=== PATIENT | male | born 1980 ===

== ENCOUNTER 2017-04-21 10:06 | Emergency (ER) | payer OTHER ==
[2017-04-21 10:06] VITALS: BMI 30.1
[2017-04-21 10:15] VITALS: BP 159/92; PULSE 89; RESP 17; TEMP 98; O2SAT 98
--- NOTE | 2017-04-21 11:08 | ED PDOC ---
HPI: Wound Care - HPI Time Seen by Provider: 04/21/17 10:32 Chief Complaint (Nursing): Wound Check Chief Complaint (Provider): suture removal History Per: Patient Additional Complaint(s): 37yo M in ED for eval of suture removal plced last week. no drainage no swelling no pain. Past Medical History Reviewed: Historical Data, Nursing Documentation, Vital Signs Vital Signs: Last Vital Signs Temp 98 F 04/21/17 10:13 Pulse 89 04/21/17 10:13 Resp 17 04/21/17 10:13 BP 159/92 H 04/21/17 10:13 Pulse Ox 98 04/21/17 10:13 - Medical History PMH: No Chronic Diseases - Family History Family History: States: Unknown Family Hx - Home Medications Home Medications: Ambulatory Orders Medication Instructions Recorded No Known Home Med 04/21/17 - Allergies Allergies/Adverse Reactions: Allergies Allergy/AdvReac Type Severity Reaction Status Date / Time No Known Allergies Allergy Verified 04/14/17 10:39 Review of Systems ROS Statement: Except As Marked, All Systems Reviewed And Found Negative Eyes: Positive for: Other Physical Exam - Reviewed Nursing Documentation Reviewed: Yes Vital Signs Reviewed: Yes - Physical Exam Appears: Positive for: Well, Non-toxic, No Acute Distress Head Exam: Positive for: ATRAUMATIC, NORMAL INSPECTION, NORMOCEPHALIC Skin: Positive for: Normal Color, Warm, Rash (sutures in place aboveleft eyeborw -good wound healing noted. ) Eye Exam: Positive for: EOMI, Normal appearance, PERRL Neurologic/Psych: Positive for: Alert, Oriented - ECG O2 Sat by Pulse Oximetry: 98 Medical Decision Making Medical Decision Making: sutures removed. no complications. no further ED f.u needed Disposition - Clinical Impression Clinical Impression: Visit for suture removal - Patient ED Disposition Is Patient to be Admitted: No Counseled Patient/Family Regarding: Need For Followup - Disposition Disposition: Routine/Home Disposition Time: 11:08 Condition: STABLE Instructions: Stitches Removal (ED)
== END 2017-04-21 11:16 | disposition home or self-care (01) ==
LOC: H.ER 10:06
DX: Z48.02 Encounter for removal of sutures (principal)

== ENCOUNTER 2017-04-22 21:41 | Emergency (ER) | payer OTHER ==
[2017-04-22 21:41] VITALS: BMI 30.1
[2017-04-22 21:53] VITALS: BP 149/86; PULSE 95; RESP 16; TEMP 98.6; O2SAT 99
[2017-04-22 22:39] LABS: BASO # 0.1 K/uL (0.0-0.2); BASO % 0.8 % (0.0-2.0); EOS # 0.2 K/uL (0.0-0.7); EOS % 2.4 % (0.0-4.0); HEMATOCRIT 42.6 % (35.0-51.0); LYMPH # 2.6 K/uL (1.0-4.3); LYMPH % 26.8 % (20.0-40.0); MEAN CELL VOLUME 82.7 fl (80.0-94.0); MEAN CORPUSCULAR HEMOGLOBIN 27.4 pg (27.0-31.0); MEAN CORPUSCULAR HGB CONC 33.2 g/dL (33.0-37.0); MEAN PLATELET VOLUME 8.7 fl (7.2-11.7); MONO # 0.7 K/uL (0.0-0.8); NEUT # 6.1 K/uL (1.8-7.0); NRBC % 0.2 % (0.0-0.0); RED CELL DISTRIBUTION WIDTH 13.1 % (11.5-14.5); WHITE BLOOD COUNT 9.7 K/uL (4.8-10.8)
[2017-04-22 22:44] LABS: PARTIAL THROMBOPLASTIN TIME 31.6 Seconds (25.6-37.1)
[2017-04-22 22:49] LABS: ALB/GLOB RATIO 1.3 (1.0-2.1); ALKALINE PHOSPHATASE 85 U/L (38-126); ALT/SGPT 78 U/L (21-72); AST/SGOT 31 U/L (17-59); BILIRUBIN,TOTAL 0.7 mg/dl (0.2-1.3); BLOOD UREA NITROGEN 14 mg/dl (9-20); CALCIUM 9.1 mg/dL (8.4-10.2); CARBON DIOXIDE 24 mmol/L (22-30); CHLORIDE 107 mmol/L (98-107); GFR AFRICAN-AMERICAN > 60; GLUCOSE,RANDOM 113 mg/dL (75-110); POTASSIUM 4.1 MMOL/L (3.6-5.0); SODIUM 141 mmol/l (132-148); TOTAL PROTEIN 8.1 G/DL (6.3-8.2)
--- NOTE | 2017-04-23 00:20 | ED PDOC ---
HPI: Chest Pain Time Seen by Provider: 04/22/17 21:57 Chief Complaint (Nursing): Chest Pain Chief Complaint (Provider): Chest Pain History Per: Patient History/Exam Limitations: no limitations Onset/Duration Of Symptoms: Days (x1) Current Symptoms Are (Timing): Still Present Quality: Pressure Associated Symptoms: denies: Nausea, Diaphoresis Nitro Therapy Administered: 1, Per ED Additional Complaint(s): 37 year old male presents to ED with complaints of chest pain x1 day and has a past medical history of hypertriglyceridemia, hypercholesterolemia, HTN, pre-DM , and ADD. Patient notes that chest pain started this morning and was localized to the left side. (-) nausea, vomiting, diaphoresis, cough, fever, or SOB. Patient confirms pain is unchanged by movement or activity, and describes the pain as a pressure sensation. PCP: Ashley Past Medical History Reviewed: Historical Data, Nursing Documentation, Vital Signs Vital Signs: Last Vital Signs Temp 98.6 F 04/22/17 21:49 Pulse 95 H 04/22/17 21:49 Resp 16 04/22/17 21:49 BP 149/86 04/22/17 21:49 Pulse Ox 99 04/23/17 00:28 - Medical History PMH: Diabetes (pre diabetes), HTN, Hypercholesterolemia Other PMH: hypertriglyceridemia, ADD - Surgical History Other surgeries: right bicept tendon repair - Family History Family History: States: CAD (Heart disease in father's family history), Other - Social History Current smoker - smoking cessation education provided: No Ex-Smoker (has not smoked in the last 12 months): No Alcohol: None Drugs: Denies - Home Medications Home Medications: Ambulatory Orders Medication Instructions Recorded No Known Home Med 04/21/17 - Allergies Allergies/Adverse Reactions: Allergies Allergy/AdvReac Type Severity Reaction Status Date / Time No Known Allergies Allergy Verified 04/14/17 10:39 AUDREY Risk Score for UA/NSTEMI - AUDREY Risk Score Age > 64: NO 3 or more CAD Risk Factors: YES AUDREY Score: 1 Risk %: 5% Curb-65 Severity Score - CURB-65 Severity Score Confusion: No Respiratory Rate greater than/equal to 30: No Systolic BP <90 or Diastolic BP less than/equal 60mmHg: No Age >64: No Curb-65 Score: 0 Percentage 30-day mortality: 0.6% Wells Criteria for PE - Wells Criteria for Pulmonary Embolism Clinical Signs and Symptoms of DVT: No P.E is #1 Diagnosis, or Equally Likely: No Heart Rate >100: No Immobilization at least 3 days;Surgery previous 4 weeks: No Previous, objectively diagnosed PE or DVT: No Hemoptysis: No Malignancy w/treatment within 6 months, or palliative: No Total Score: 0 Review of Systems ROS Statement: Except As Marked, All Systems Reviewed And Found Negative Constitutional: Negative for: Fever, Sweats Cardiovascular: Positive for: Chest Pain Respiratory: Negative for: Cough, Shortness of Breath Gastrointestinal: Negative for: Nausea, Vomiting Physical Exam - Reviewed Nursing Documentation Reviewed: Yes Vital Signs Reviewed: Yes - Physical Exam Appears: Positive for: Non-toxic, No Acute Distress Head Exam: Positive for: ATRAUMATIC, NORMOCEPHALIC Skin: Positive for: Normal Color, Warm, Dry Eye Exam: Positive for: EOMI, Normal appearance, PERRL ENT: Positive for: Normal ENT Inspection Neck: Positive for: Normal, Painless ROM Cardiovascular/Chest: Positive for: Regular Rate, Rhythm. Negative for: Murmur Respiratory: Positive for: Normal Breath Sounds. Negative for: Respiratory Distress Gastrointestinal/Abdominal: Positive for: Normal Exam, Soft. Negative for: Tenderness Back: Positive for: Normal Inspection. Negative for: L CVA Tenderness, R CVA Tenderness Extremity: Positive for: Normal ROM. Negative for: Deformity Neurologic/Psych: Positive for: Alert, Oriented. Negative for: Motor/Sensory Deficits - Laboratory Results Result Diagrams: 04/22/17 22:24 04/22/17 22:24 - ECG O2 Sat by Pulse Oximetry: 99 (RA) Pulse Ox Interpretation: Normal Medical Decision Making Medical Decision Makin Initial impression: chest pain in setting of known dyslipidemia and HTN Initial plan: * EKG * Labs * UDrug screen * Trop I * PTT/PT * CXR * ASA 324 mg PO * Re-eval 2300 CXR: NAD Labs reviewed: no clinically significant abnormalities. Due to multiple risk factors, patient is encouraged to be hospitalized under OBS status. 2325 Patient chooses to sign out AMA. This patient is choosing to leave against medical advice. The provider has personally explained to the patient that choosing to do so may result in permanent bodily harm or . The provider discussed at great length that without further evaluation and monitoring there may be unforeseen circumstances and/or deterioration causing permanent bodily harm or as a result of their choice. The patient verbalized these risks back to the physician in layman s terms. The patient is alert, oriented, and shows the mental capacity to make clear decisions regarding the patient's health care at this time. The patient continues to wish to leave against medical advice. In light of the patients decision to leave AMA, follow-up has been arranged and the patient is aware of the importance of following up as instructed. The patient has been advised that they should return to the ED immediately if they change their mind at any time, or if their condition begins to change or worsen in any way. Scribe Attestation: Documented by Alberta San acting as a scribe for Rik Wilhelm MD. Scribe Attestation: All medical record entries made by the Scribe were at my direction and personally dictated by me. I have reviewed the chart and agree that the record accurately reflects my personal performance of the history, physical exam, medical decision making, and the department course for this patient. I have also personally directed, reviewed, and agree with the discharge instructions and disposition. Disposition - Clinical Impression Clinical Impression: Chest pain - Patient ED Disposition Is Patient to be Admitted: No Counseled Patient/Family Regarding: Studies Performed, Diagnosis - Disposition Disposition: Against Medical Advice Disposition Time: 23:25 Condition: FAIR Forms: [facility] (Macedonian) - POA Present On Arrival: None
--- NOTE | 2017-04-23 11:14 | RAD ---
HISTORY: Chest pain COMPARISON: No prior. FINDINGS: LUNGS: The lungs are well inflated and clear. PLEURA: No significant pleural effusion identified, no pneumothorax apparent. CARDIOVASCULAR: Normal. OSSEOUS STRUCTURES: No significant abnormalities. VISUALIZED UPPER ABDOMEN: Normal. OTHER FINDINGS: None. IMPRESSION: No active pulmonary disease.
--- NOTE | 2017-04-24 12:04 | CARD ---
APPROVED REPORT EKG Measurement Heart [id number] <Conclusion> Normal sinus rhythm ST & T wave abnormality, consider lateral ischemia Abnormal ECG
== END 2017-04-23 00:10 | disposition left against medical advice (07) ==
LOC: H.ER 21:41
DX: R07.89 Other chest pain (principal); E78.00 Pure hypercholesterolemia, unspecified; E78.1 Pure hyperglyceridemia; I10 Essential (primary) hypertension; R73.03 Prediabetes; Z79.82 Long term (current) use of aspirin; Z82.49 Family history of ischemic heart disease and other diseases of the circulatory system; Z87.891 Personal history of nicotine dependence

== ENCOUNTER 2017-04-23 05:41 | Observation (INO) | payer OTHER ==
[2017-04-23 05:41] VITALS: BMI 30.1
--- NOTE | 2017-04-23 05:54 | ED PDOC ---
HPI: Chest Pain Time Seen by Provider: 04/23/17 05:47 Chief Complaint (Nursing): Chest Pain Chief Complaint (Provider): Chest Pain History Per: Patient History/Exam Limitations: no limitations Onset/Duration Of Symptoms: Days (x1) Current Symptoms Are (Timing): Still Present Quality: Pressure Associated Symptoms: denies: Nausea Additional Complaint(s): 37 year old male presents to ED with complaints of chest pain x1 day and has a past medical history of hypertriglyceridemia, hypercholesterolemia, HTN, pre-DM , and ADD. Patient notes that chest pain started this morning and was localized to the left side. (-) nausea, vomiting, diaphoresis, cough, fever, or SOB. Patient confirms pain is unchanged by movement or activity, and describes the pain as a pressure sensation. Patient was seen in ED earlier today and was recommended by provider to remain in the hospital for chest pain observation but declined. Patient now returns for observation. PCP: Ashley - Risk Factors PE Risk Factors: Neg: Active Cancer TAD Risk Factors: Pos: Hypertension Past Medical History Reviewed: Historical Data, Nursing Documentation, Vital Signs Vital Signs: Last Vital Signs Temp 97.5 F L 04/23/17 05:51 Pulse 88 04/23/17 06:28 Resp 18 04/23/17 06:28 BP 136/82 04/23/17 06:28 Pulse Ox 100 04/23/17 05:51 - Medical History PMH: Diabetes (pre diabetes), HTN, Hypercholesterolemia - Family History Family History: States: Unknown Family Hx, CAD (Heart disease in father's family history) - Home Medications Home Medications: Ambulatory Orders Medication Instructions Recorded Atorvastatin [Lipitor] 20 mg PO HS 04/23/17 Methylphenidate HCl [Concerta] 18 mg PO DAILY 04/23/17 - Allergies Allergies/Adverse Reactions: Allergies Allergy/AdvReac Type Severity Reaction Status Date / Time No Known Allergies Allergy Verified 04/23/17 06:23 AUDREY Risk Score for UA/NSTEMI - AUDREY Risk Score Age > 64: NO 3 or more CAD Risk Factors: YES AUDREY Score: 1 Risk %: 5% Curb-65 Severity Score - CURB-65 Severity Score Confusion: No Respiratory Rate greater than/equal to 30: No Systolic BP <90 or Diastolic BP less than/equal 60mmHg: No Age >64: No Curb-65 Score: 0 Percentage 30-day mortality: 0.6% Review of Systems ROS Statement: Except As Marked, All Systems Reviewed And Found Negative Constitutional: Negative for: Fever, Sweats Cardiovascular: Positive for: Chest Pain Respiratory: Negative for: Cough, Shortness of Breath Gastrointestinal: Negative for: Nausea, Vomiting Physical Exam - Reviewed Nursing Documentation Reviewed: Yes Vital Signs Reviewed: Yes - Physical Exam Appears: Positive for: Well, Non-toxic, No Acute Distress Head Exam: Positive for: ATRAUMATIC, NORMOCEPHALIC Skin: Positive for: Normal Color, Warm, Dry Eye Exam: Positive for: EOMI, Normal appearance, PERRL ENT: Positive for: Normal ENT Inspection Neck: Positive for: Normal, Painless ROM, Supple Cardiovascular/Chest: Positive for: Regular Rate, Rhythm, Tachycardia Respiratory: Positive for: Normal Breath Sounds. Negative for: Respiratory Distress Gastrointestinal/Abdominal: Positive for: Normal Exam, Soft. Negative for: Tenderness Back: Positive for: Normal Inspection Extremity: Positive for: Normal ROM. Negative for: Deformity Neurologic/Psych: Positive for: Alert, Oriented. Negative for: Motor/Sensory Deficits Medical Decision Making Medical Decision Makin Initial impression: chest pain in setting of risk factors including HTN, hypercholesterolemia, hypertriglyceridemia, pre-DM Initial plan: * EKG * UDrug Screen * Trop I * OBS TELE order [id number] Cottrell, who accepts patient under his service. Scribe Attestation: Documented by Alberta San acting as a scribe for Rik Wilhelm MD. Scribe Attestation: All medical record entries made by the Scribe were at my direction and personally dictated by me. I have reviewed the chart and agree that the record accurately reflects my personal performance of the history, physical exam, medical decision making, and the department course for this patient. I have also personally directed, reviewed, and agree with the discharge instructions and disposition. Disposition - Clinical Impression Clinical Impression: Chest pain - Patient ED Disposition Is Patient to be Admitted: Yes Discussed With : Tenzin Cottrell Counseled Patient/Family Regarding: Studies Performed, Diagnosis - Disposition Disposition Time: 06:00 Condition: FAIR Forms: [facility] ([place]) - Pt Status Changed To: Hospital Disposition Of: Observation
[2017-04-23] MEDS ORDERED: Methylphenidate ER 18 MG TAB(Concerta) PO SCH (11:45)
--- NOTE | 2017-04-23 14:53 | CP.PCM.CON ---
History of Present Illness - History of Present Illness History of Present Illness: 37 yo male with atypical cp x 2 days. pain is moderate, constant, tightness over lateral lower chest area near lower ribs. It does no radiate and increases with twisting of torso. no associated sx. no hx of tobacco. no hx of htn or dyslipidemia. trop neg x 2. ekg nml Review of Systems - Constitutional Constitutional: As Per HPI. absent: Anorexia, Chills, Daytime Sleepiness, Excessive Sweating, Fatigue, Fever, Frequent Falls, Headache, Increased Appetite , Lethargy, Malaise, Night Sweats, Snoring, Sleep Apnea, Weight Gain, Weight Loss, Weakness, Other - EENT Eyes: As Per HPI. absent: Blind Spots, Blurred Vision, Change in Vision, Decreased Night Vision, Diplopia, Discharge, Dry Eye, Exophthalmos, Floaters, Irritation, Itchy Eyes, Loss of Peripheral Vision, Pain, Photophobia, Requires Corrective Lenses, Sees Flashes, Spots in Vision, Tunnel Vision, Other Visual Disturbances, Loss of Vision, Other Ears: As Per HPI. absent: Decreased Hearing, Ear Discharge, Ear Pain, Tinnitus , Abnormal Hearing, Disequilibrium, Dizziness, Other Nose/Mouth/Throat: As Per HPI. absent: Epistaxis, Nasal Congestion, Nasal Discharge, Nasal Obstruction, Nasal Trauma, Nose Pain, Post Nasal Drip, Sinus Pain, Sinus Pressure, Bleeding Gums, Change in Voice, Dental Pain, Dry Mouth, Dysphagia, Halitosis, Hoarsness, Lip Swelling, Mouth Lesions, Mouth Pain, Odynophagia, Sore Throat, Throat Swelling, Tongue Swelling, Facial Pain, Neck Pain, Neck Mass, Other - Cardiovascular Cardiovascular: Chest Pain. absent: As Per HPI, Acrocyanosis, Chest Pain at Rest, Chest Pain with Activity, Claudication, Diaphoresis, Dyspnea, Dyspnea on Exertion, Edema, Irregular Heart Rhythm, Pain Radiating to Arm/Neck/Jaw, Leg Edema, Leg Ulcers, Lightheadedness, Orthopnea, Palpitations, Paroxysmal Nocturnal Dyspnea, Pedal Edema, Radiating Pain, Rapid Heart Rate, Slow Heart Rate, Syncope, Other - Respiratory Respiratory: As Per HPI. absent: Cough, Dyspnea, Hemoptysis, Dyspnea on Exertion, Wheezing, Snoring, Stridor, Pain on Inspiration, Chest Congestion, Excessive Mucous Production, Change in Mucous Color, Pain with Coughing, Other - Gastrointestinal Gastrointestinal: As Per HPI. absent: Abdominal Pain, Belching, Bloating, Change in Bowel Habits, Change in Stool Character, Coffee Ground Emesis, Constipation, Cramping, Diarrhea, Dyspepsia, Dysphagia, Early Satiety, Excessive Flatus, Fecal Incontinence, Heartburn, Hematemesis, Hematochezia, Loose Stools, Melena, Nausea, Odynophagia, Temesmus, Vomiting, Other - Genitourinary Genitourinary: As Per HPI. absent: Change in Urinary Stream, Difficulty Urinating, Dysuria, Flank Pain, Hematuria, Pyuria, Nocturia, Urinary Incontinence, Urinary Frequency, Urinary Hesitance, Urinary Urgency, Voiding Freq/Small Amts, Freq UTI, Hx Renal/Bladder Calculi, Hx /Renal Surgery, Bladder Distension, Other Past Patient History - Infectious Disease Hx of Infectious Diseases: None - Past Social History Smoking Status: Unknown If Ever Smoked - CARDIAC Hx Cardiac Disorders: Yes (HTN, Hypercholesterolemia) - PSYCHIATRIC Hx Substance Use: No - SURGICAL HISTORY Hx Surgeries: Yes Hx Musculoskeletal Surgery: Yes - ANESTHESIA Hx Anesthesia: No Meds Allergies/Adverse Reactions: Allergies Allergy/AdvReac Type Severity Reaction Status Date / Time No Known Allergies Allergy Verified 04/23/17 06:23 - Medications Medications: Current Medications Atorvastatin Calcium (Lipitor) 40 mg PO HS REILLY Ezetimibe (Zetia) 10 mg PO HS [facility] Methylphenidate HCl (Concerta) 18 mg PO DAILY [facility] Last Admin: 04/23/17 12:34 Dose: 18 mg Results - Vital Signs Recent Vital Signs: Last Vital Signs Temp 97.9 F 04/23/17 08:37 Pulse 78 04/23/17 08:37 Resp 26 H 04/23/17 08:37 BP 122/62 04/23/17 08:37 Pulse Ox 98 04/23/17 08:37 - Labs Labs: Laboratory Results - last 24 hr 04/23/17 04/23/17 04/23/17 06:08 08:12 13:56 Troponin I < 0.0120 < 0.0120 Urine Opiates Screen Negative Urine Methadone Screen Negative Ur Barbiturates Screen Negative Ur Phencyclidine Scrn Negative Ur Amphetamines Screen Negative U Benzodiazepines Scrn Negative U Oth Cocaine Metabols Negative U Cannabinoids Screen Negative
[2017-04-23 20:43] VITALS: BP 124/75; PULSE 84; RESP 17; TEMP 98.2; O2SAT 97
--- NOTE | 2017-04-24 11:21 | CARD ---
APPROVED REPORT EXAM: Two-dimensional and M-mode echocardiogram with Doppler and color Doppler. Other Information Quality : GoodRhythm : NSR INDICATION Chest Pain 2D DIMENSIONS IVSd1.33 (0.7-1.1cm)LVDd3.63 (3.9-5.9cm) LVOT Diameter1.94 (1.8-2.4cm)PWd1.20 (0.7-1.1cm) IVSs1.39 (0.8-1.2cm)LVDs2.58 (2.5-4.0cm) FS (%) 28.9 %PWs1.29 (0.8-1.2cm) M-Mode DIMENSIONS Left Atrium (MM)4.08 (2.5-4.0cm)IVSd1.38 (0.7-1.1cm) Aortic Root3.03 (2.2-3.7cm)LVDd4.30 (4.0-5.6cm) Aortic Cusp Exc.1.93 (1.5-2.0cm)PWd1.24 (0.7-1.1cm) IVSs1.68 cmFS (%) 54 % LVDs1.96 (2.0-3.8cm)PWs1.68 cm Mitral Valve MV E Iayyawox17.7cm/sMV DECEL [id number] A Mvyzwxch88.9cm/s MV TEY18spP/A ratio1.1MVA (PHT)3.81cm2 TDI Lateral E' Peak V13.36cm/sMedial E' Peak V5.13cm/sE/Lateral E'4.8 E/Medial E'12.6 Pulmonary Valve PV Peak Tkiazndf727.9cm/s LEFT VENTRICLE The left ventricle is normal size. There is mild concentric left ventricular hypertrophy. The left ventricular function is normal. The left ventricular ejection fraction is 60% There is normal LV segmental wall motion. The left ventricular diastolic function is normal. No left ventricle thrombus noted on this study. There is no ventricular septal defect visualized. There is no left ventricular aneurysm. There is no mass noted in the left ventricle. RIGHT VENTRICLE The right ventricle is normal size. There is normal right ventricular wall thickness. The right ventricular systolic function is normal. ATRIA The left atrium size is normal. The right atrium size is normal. The interatrial septum is intact with no evidence for an atrial septal defect. AORTIC VALVE The aortic valve is normal in structure. No aortic regurgitation is present. There is no aortic valvular stenosis. There is no aortic valvular vegetation. MITRAL VALVE The mitral valve is normal in structure. There is no evidence of mitral valve prolapse. There is no mitral valve stenosis. There is no mitral valve regurgitation noted. TRICUSPID VALVE The tricuspid valve is normal in structure. There is no tricuspid valve regurgitation noted. There is no tricuspid valve prolapse or vegetation. There is no tricuspid valve stenosis. PULMONIC VALVE The pulmonary valve is normal in structure. There is no pulmonic valvular regurgitation. There is no pulmonic valvular stenosis. GREAT VESSELS The aortic root is normal in size. The ascending aorta is normal in size. The IVC is normal in size and collapses >50% with inspiration. PERICARDIAL EFFUSION The pericardium appears normal. There is no pleural effusion. <Conclusion> Normal Echocardiogram
--- NOTE | 2017-04-24 11:57 | CARD ---
APPROVED REPORT EKG Measurement Heart [id number] TX [id number] <Conclusion> Normal sinus rhythm Nonspecific ST and T wave abnormality Prolonged QT Abnormal ECG
--- NOTE | 2017-04-25 08:59 | DS ---
REASON FOR ADMISSION: This is a 37-year-old male with history of hyperlipidemia, on medications, who was admitted for atypical chest pain. COURSE OF HOSPITALIZATION: The patient was admitted for observation and he has had an echocardiogram done. Cardiology consult also was done. The patient's EKG showed nonspecific ST-T wave changes. Three cardiac enzymes were negative. The patient was cleared by Cardiology for discharge to follow up as an outpatient for a stress test to be done as an outpatient. FINAL DIAGNOSES: 1. Atypical chest pain and myocardial infarction was ruled out. 2. History of hyperlipidemia. [facility] MD [place]
--- NOTE | 2017-04-25 09:00 | HP ---
SUBJECTIVE: The patient is seen today in the emergency room. HISTORY AND PHYSICAL: A 37-year-old male with history of hyperlipidemia, presented to emergency room with symptoms of left-sided inframammary chest pain that started as the patient was sitting working in his computer. The patient denied to have any similar chest pain before. The patient's symptoms were not associated with any other cardiovascular symptoms likely shortness of breath, palpitations or leg edema. REVIEW OF SYSTEMS: Other review of systems are negative. ALLERGIES: NO KNOWN ALLERGY. PAST MEDICAL HISTORY: Hyperlipidemia. SOCIAL HISTORY: No history of smoking, EtOH or substance abuse. FAMILY HISTORY: Not contributory. HOME MEDICATIONS: As par MAR. PHYSICAL EXAMINATION: GENERAL: The patient is in bed, comfortable, not in any cardiopulmonary distress. VITAL SIGNS: Blood pressure 122/62, temperature 97.9, respiratory rate 20, pulse 78. HEENT: Pupils equal, reactive to light. Normal-appearing mucosa of the conjunctivae, oropharyngeal and nasal membrane mucosa. NECK: Supple. No JVD. No carotid bruit. No lymph nodes. No thyromegaly. CHEST AND LUNGS: Bilateral symmetrical expansion. Good air exchange. No rales, no rhonchi. CARDIOVASCULAR SYSTEM: PMI not localized. S1 and S2. No additional sounds. ABDOMEN: Normoactive bowel sounds. No tenderness. No organomegaly. No masses. EXTREMITIES: No cyanosis, no clubbing, no edema. CENTRAL NERVOUS SYSTEM: Alert, awake, oriented x3. No neurological deficit could be appreciated. ASSESSMENT: 1. Chest pain, rule out acute coronary syndrome. 2. History of hyperlipidemia, on lipid management medications. PLAN: Do cardiac enzymes every 8 hours. Cardiology consult. Echocardiogram. Follow recommendations of escalator constructor. Tenzin Cottrell MD
== END 2017-04-23 22:00 | disposition home or self-care (01) ==
LOC: H.ER 05:41 → H.ERHOLD 05:50
PROVIDERS: ADMIT Internal Medicine; ATTEND Internal Medicine
DX: R07.89 Other chest pain (principal); E78.00 Pure hypercholesterolemia, unspecified; I10 Essential (primary) hypertension; E78.1 Pure hyperglyceridemia; R73.03 Prediabetes; Z79.899 Other long term (current) drug therapy
CPT/HCPCS: 80324; 80345; 80346; 80349; 80353; 80358; 80361; 83992; 84484; 93005; 93306; 99285; G0378

== ENCOUNTER 2018-09-28 09:19 | Emergency (ER) | payer OTHER ==
[2018-09-28 09:29] VITALS: BMI 27.9
[2018-09-28 09:31] VITALS: O2SAT 99
[2018-09-28] MEDS ORDERED: Sodium Chloride 0.9% 1,000 ML IV STA (09:40)
--- NOTE | 2018-09-28 09:43 | ED PDOC ---
HPI: Abdomen Time Seen by Provider: 09/28/18 09:32 Chief Complaint (Nursing): Abdominal Pain Chief Complaint (Provider): ABDOMINAL PAIN History Per: Patient History/Exam Limitations: no limitations Onset/Duration Of Symptoms: Days Outside of [place] travel?: No Current Symptoms Are (Timing): Intermittent Episodes Severity: None Pain Scale Rating Of: 0 Associated Symptoms: Nausea, Diarrhea, Loss Of Appetite. denies: Fever, Chills, Vomiting, Back Pain, Chest Pain Exacerbating Factors: None Alleviating Factors: OTC Meds Last Bowel Movement: Today Additional History Per: Patient Additional Complaint(s): 38 YEAR OLD MALE WITH NO MEDICAL PROBLEMS PRESENTS TO THE ED C/O DIFFUSE ABD "DISCOMFORT" AND DIARRHEA SINCE SATURDAY. HE STATES HE HAS BEEN HAVING ABOUT 4 EPISODES A DAY SINCE SATURDAY, UNSURE WHAT COULD HAVE CAUSED BOUTS OF WATERY , NON-BLOODY DIARRHEA. PATIENT STATES HE WAS SEEN AT [place] FOR SAME TWO DAYS AGO AND WAS TOLD IF DIARRHEA CONTINUED TO GET AN "ULTRASOUND"OF THE ABD. PATIENT ALSO REPORTS ASSOCIATED POOR APPETITE, NAUSEA. PATIENT STATES HE TOOK [facility] PRIOR TO COMING IN TODAY. PATIENT DENIES FEVER, VOMITING, SICK CONTACTS. Past Medical History Reviewed: Historical Data, Nursing Documentation, Vital Signs Vital Signs: Last Vital Signs Temp 98.5 F 09/28/18 09:28 Pulse 70 09/28/18 09:28 Resp 18 09/28/18 09:28 BP 134/88 09/28/18 09:28 Pulse Ox 99 09/28/18 09:28 CLAUDIA Report Viewed: No - Medical History PMH: Diabetes (pre diabetes), HTN, Hypercholesterolemia - Surgical History Surgical History: No Surg Hx - Family History Family History: States: Unknown Family Hx, CAD (Heart disease in father's family history) - Home Medications Home Medications: Ambulatory Orders Medication Instructions Recorded Atorvastatin [Lipitor] 40 mg PO HS 04/23/17 Ezetimibe [Zetia] 10 mg PO HS 04/23/17 Methylphenidate HCl [Concerta] 18 mg PO DAILY 04/23/17 Ciprofloxacin HCl [Cipro] 500 mg PO Q12H #14 tablet 09/28/18 Dicyclomine [Bentyl] 20 mg PO QID PRN #20 tab 09/28/18 Famotidine [Pepcid] 40 mg PO DAILY 30 Days tablet 09/28/18 Loperamide [Imodium] 4 mg PO ONCE PRN #20 cap 09/28/18 Ondansetron ODT [Zofran ODT] 4 mg PO Q6H PRN #12 odt 09/28/18 - Allergies Allergies/Adverse Reactions: Allergies Allergy/AdvReac Type Severity Reaction Status Date / Time No Known Allergies Allergy Verified 04/23/17 06:23 Review of Systems ROS Statement: Except As Marked, All Systems Reviewed And Found Negative Constitutional: Negative for: Fever, Chills, Sweats, Weakness, Malaise Eyes: Positive for: Pain Gastrointestinal: Positive for: Nausea, Abdominal Pain. Negative for: Vomiting Genitourinary Male: Negative for: Dysuria, Frequency Physical Exam - Reviewed Nursing Documentation Reviewed: Yes Vital Signs Reviewed: Yes - Physical Exam Appears: Positive for: Well, Non-toxic, No Acute Distress Head Exam: Positive for: ATRAUMATIC, NORMAL INSPECTION, NORMOCEPHALIC Skin: Positive for: Normal Color, Warm, Dry Eye Exam: Positive for: EOMI, Normal appearance, PERRL ENT: Positive for: Normal ENT Inspection Neck: Positive for: Normal, Painless ROM, Supple Cardiovascular/Chest: Positive for: Regular Rate, Rhythm Respiratory: Positive for: CNT, Normal Breath Sounds Gastrointestinal/Abdominal: Positive for: Normal Exam, Bowel Sounds (NOROACTIVE ), Soft. Negative for: Tenderness Back: Positive for: Normal Inspection Extremity: Positive for: Normal ROM Neurological/Psych: Positive for: Awake, Alert, Normal Tone, Oriented - Laboratory Results Result Diagrams: 09/28/18 10:00 09/28/18 10:00 - ECG O2 Sat by Pulse Oximetry: 99 Medical Decision Making Medical Decision Making: --CBC --CMP --LIPASE --IV INSERTION --PEPCID 20MG IV --US abd Ultrasound 11:40: Patient now reports he had sushi and anchovies on saturday prior to start of episodic diarrhea. Labs reviewed by me and are unremarkable. Findings discussed with patient. Pending US report for disposition. 12:13: Patient requesting food, given. Will monitor for toleration. 12:33: Patient tolerated PO. Clinical findings discussed with patient. Patient given education on diet to continue until diarrhea subsides. RX given for Cipro, zofran, pepcid, bentyl and lomotil given if diarrhea does not improve in after 10 days. Follow -up with PMD within the week. Instructed to return to ED if develops fever, increased abdominal pain. Unable to tolerate PO intake. VS stable. Patient states understanding and agrees with plan. Disposition - Clinical Impression Clinical Impression: Diarrhea - Patient ED Disposition Is Patient to be Admitted: No Counseled Patient/Family Regarding: Diagnosis, Need For Followup, Rx Given - Disposition Disposition: Routine/Home Disposition Time: 12:41 Condition: STABLE Prescriptions: Ciprofloxacin HCl [Cipro] 500 mg PO Q12H #14 tablet Dicyclomine [Bentyl] 20 mg PO QID PRN #20 tab PRN Reason: Irritable Bowel Symptoms Famotidine [Pepcid] 40 mg PO DAILY 30 Days tablet Loperamide [Imodium] 4 mg PO ONCE PRN #20 cap PRN Reason: Diarrhea Ondansetron ODT [Zofran ODT] 4 mg PO Q6H PRN #12 odt PRN Reason: Nausea/Vomiting Instructions: Diarrhea in Adolescents and Adults Forms: [facility] (Malaysian) - POA Present On Arrival: None
[2018-09-28 10:08] LABS: BASO % 0.4 % (0.0-2.0); EOS # 0.1 K/uL (0.0-0.7); EOS % 1.1 % (0.0-4.0); HEMOGLOBIN 15.9 g/dL (12.0-18.0); LYMPH # 1.1 K/uL (1.0-4.3); LYMPH % 17.8 % (20.0-40.0); MEAN CELL VOLUME 84.1 fl (80.0-94.0); MEAN CORPUSCULAR HEMOGLOBIN 28.1 pg (27.0-31.0); MEAN CORPUSCULAR HGB CONC 33.5 g/dL (33.0-37.0); MONO # 0.5 K/uL (0.0-0.8); MONO % 7.9 % (0.0-10.0); NEUT # 4.5 K/uL (1.8-7.0); NEUT % 72.8 % (50.0-75.0); NRBC % 0.3 % (0.0-0.0); RBC 5.65 Mil/uL (4.40-5.90); RED CELL DISTRIBUTION WIDTH 13.6 % (11.5-14.5); WHITE BLOOD COUNT 6.2 K/uL (4.8-10.8)
[2018-09-28 10:17] LABS: ALB/GLOB RATIO 1.2 (1.0-2.1); ALBUMIN 4.8 g/dL (3.5-5.0); ALT/SGPT 60 U/L (21-72); AST/SGOT 39 U/L (17-59); BLOOD UREA NITROGEN 13 mg/dl (9-20); CALCIUM 8.9 mg/dL (8.4-10.2); GFR NON-AFRICAN AMERICAN > 60; LIPASE 252 U/L (23-300)
--- NOTE | 2018-09-28 11:39 | US ---
Date of service: 09/28/2018 HISTORY: diarrhea, abd pain COMPARISON: None. TECHNIQUE: Sonographic evaluation of the abdomen. FINDINGS: LIVER: Measures 16 cm. Normal echogenicity of the liver parenchyma. No mass. No intrahepatic bile duct dilatation. GALLBLADDER: Unremarkable. No gallstones. COMMON BILE DUCT: Measures 4.6 mm. No stones. No dilatation. PANCREAS: Unremarkable as visualized. No mass. No ductal dilatation. RIGHT KIDNEY: Measures 11.4cm. Normal echogenicity. No calculus, mass, or hydronephrosis. LEFT KIDNEY: Measures 10.8cm. Normal echogenicity. No calculus, mass, or hydronephrosis. SPLEEN: Normal in size and contour. No mass. AORTA: No aneurysmal dilatation. IVC: Unremarkable. OTHER FINDINGS: None. IMPRESSION: Unremarkable abdominal ultrasound
[2018-09-28 12:37] VITALS: BP 130/88; PULSE 71; RESP 17; TEMP 98.8
== END 2018-09-28 12:49 | disposition home or self-care (01) ==
LOC: H.ER 09:19
DX: R19.7 Diarrhea, unspecified (principal)
CPT/HCPCS: 76700; 80053; 83690; 85025; 96361; 96374; 99285; J7030